=== PATIENT | male | born 1935 | race Caucasian/White ===

== ENCOUNTER 2020-09-24 06:55 | Day surgery (SDC) | payer MEDICARE, OTHER ==
[2020-09-18 17:44] LABS: BASOPHILS # (AUTO) 0.1 X10'3 (0-0.2); EOSINOPHILS # (AUTO) 0.3 X10'3 (0-0.9); EOSINOPHILS % (AUTO) 4.2 % (0-6); LYMPHOCYTES # (AUTO) 1.1 X10'3 (1.1-4.8); LYMPHOCYTES % (AUTO) 15.7 % (21-51); MEAN CORPUSCULAR HGB CONC 33.1 g/dL (33.0-36.5); MEAN CORPUSCULAR VOLUME 87.5 FL (78-98); MEAN PLATELET VOLUME 7.1 FL (7.4-10.4); MONOCYTES # (AUTO) 0.7 X10'3 (0-0.9); MONOCYTES % (AUTO) 9.9 % (2-12); NEUTROPHILS # (AUTO) 4.8 X10'3 (1.8-7.7); NEUTROPHILS % (AUTO) 69.2 % (42-75); PRE OP HEMATOCRIT 45.1 % (42.0-52.0); PRE OP HEMOGLOBIN 14.9 g/dL (14.0-17.9); PRE OP PLATELET COUNT 254 X10'3 (140-440); RED BLOOD COUNT 5.16 X10'6 (4.70-6.10); RED CELL DISTRIBUTION WIDTH 14.3 % (11.5-14.5)
[2020-09-18 17:51] LABS: PRE OP PROTIME 10.8 SECONDS (9.0-12.0)
[2020-09-18 17:56] LABS: ALBUMIN 3.9 G/DL (3.4-5.0); ALBUMIN/GLOBULIN RATIO 1.1 (1.1-1.5); ALKALINE PHOSPHATASE 68 IU/L (46-116); BLOOD UREA NITROGEN 15 MG/DL (7-18); BUN/CREATININE RATIO 18.1 (5.4-32.0); CALCIUM 8.9 MG/DL (8.5-10.1); CHLORIDE 105 MMOL/L (99-107); CREATININE 0.83 MG/DL (0.60-1.10); PRE OP ALT 36 U/L (30-65); PRE OP ANION GAP 8 (8-16); PRE OP AST 23 U/L (10-37); PRE OP BILIRUB, TOTAL 0.7 MG/DL (0.0-1.0); PRE OP GLUCOSE 99 MG/DL (70-104); PRE OP POTASSIUM 3.9 MMOL/L (3.4-5.1); PRE OP SODIUM 142 MMOL/L (135-145); TOTAL PROTEIN 7.3 G/DL (6.4-8.2); eGFR 88 ML/MIN
[2020-09-24] VITALS (19 sets, daily range): BP systolic 107–160; BP diastolic 51–102
[~2020-09-24] VITALS: Ht 167.6 cm; Wt 113.3 kg
[~2020-09-24 06:55] MED LIST: ATOR40TA72 PO; BENA40TA72 PO; HYDR25TA5 PO; HYDROmorphone 1 mg/ml syringe IV PRN; HYDROmorphone inj. 0.5 MG/0.5 ML DISP.SYRIN IV PRN; ROPIVAcaine 0.5% (5mg/ml) 30ml vial ONE; acetaminophen 325mg tablet PO ONE; acetaminophen 325mg tablet PO PRN; bisacodyl 10mg suppository rectal RC PRN; cefazolin/dext.iso 2gm/100ml IV ONE; celeCOXIB 100mg capsule PO ONE; cloNIDine hcl/PF 100mcg/ml inj ONE; diphenhydrAMINE 25mg capsule PO PRN; epiNEPHrine 1 mg/ml 30ml MDV ONE; epiNEPHrine 1 mg/ml inj ONE; famotidine 20mg tablet PO ONE; gabapentin 300mg capsule PO ONE; magnesium hydroxide 30ml (MOM) UD suspension PO PRN; metoclopramide 5 mg/ml inj IV ONE; ondansetron/PF 4mg/2ml inj IV PRN; oxyCODONE SR 10mg (sust. release) tab -2 tabs (20mg) PO ONE; oxyCODONE/APAP 10/325mg tablet PO PRN; tranexamic acid inj. 1,000 MG in normal saline 100 ML IV ONE; vancomycin 1,500 MG in NS 300ml IV soln IV ONE
[2020-09-24] MEDS: ringers solution, lacted 1,000 ML IV SCH ×2 (07:45→23:41)
[2020-09-24] MEDS: aspirin 325mg tablet PO SCH (08:30)
[2020-09-24] MEDS ORDERED: fentaNYL/PF 50MCG/1 ML 2ML syringe ONE (08:32)
[2020-09-24] MEDS ORDERED: midazolam 1 mg/ML 2ml injection ONE (08:32)
[2020-09-24] MEDS ORDERED: propofol inj 20 ML IV ONE ×2 (08:50)
[2020-09-24] MEDS ORDERED: ePHEDrine 50MG/ML INJ. ONE ×3 (09:16→09:34)
[2020-09-24] MEDS ORDERED: ketorolac trometh. 30mg/ml inj. ONE (09:26)
[2020-09-24] MEDS ORDERED: ROPIVAcaine 0.5% (5mg/ml) 30ml vial ONE (09:31)
[2020-09-24] MEDS ORDERED: dexamethasone sod phosphate 4mg/ml inj. ONE (09:31)
[2020-09-24] MEDS ORDERED: 0.9 % SODIUM CHLORIDE 10 ML VIAL ONE (09:34)
[2020-09-24] MEDS ORDERED: proCHLORperazine 10 MG/2 ml inj IV PRN (09:50)
[2020-09-24] MEDS ORDERED: hydrALAZINE 20mg/ml inj. IV PRN (09:50)
[2020-09-24] MEDS ORDERED: morphine 4 MG/ML inj SYRINge IV PRN (09:50)
[2020-09-24] MEDS ORDERED: ondansetron/PF 4mg/2ml inj IV PRN (09:50)
[2020-09-24] MEDS ORDERED: ringers solution, lacted 1,000 ML IV SCH (09:50)
[2020-09-24] MEDS ORDERED: morphine 2 MG/ML inj. syringe IV PRN (09:50)
[2020-09-24] MEDS ORDERED: labetalol 20mg/4ml (5mg/ml) syringe IV PRN (09:50)
[2020-09-24] MEDS ORDERED: acetaminophen 1,000mg/100ml IV 100 ML IV PRN (09:50)
[2020-09-24] MEDS ORDERED: meperidine/PF 25mg/ml syringe IV PRN ×3 (09:50)
--- NOTE | 2020-09-24 10:30 | NUR ---
Received from OR via hospital bed, accompanied by Anesthesiologist Dr. Rodriguez and report given by Anesthesiolgist. Patient has 18g to left forearm. Dressing/sleeve to right knee with Noe & Ana vac. VSS. Patient denies pain.
--- NOTE | 2020-09-24 12:00 | NUR ---
Patient report given to Shanel Ferreira RN. Patient A&Ox4. 18g forearm PIV to left. 2L NC to maintain oxygenation above 90%. VSS. Belongings sent with patient, wallet in safe (tags in chart). Patient denies pain. RIght foot still tingling, numb feeling with no movement.
[2020-09-24] MEDS ORDERED: tranexamic acid 1gm/0.7% sal. 100 ML IV ONE (14:44)
[2020-09-24] MEDS: multivitamins, therapeutics tablet PO SCH (15:46)
[2020-09-24] MEDS: ascorbic acid 500mg tablet PO SCH ×2 (15:47→19:55)
--- NOTE | 2020-09-24 18:30 | NUR ---
Patient in room [facility] 4023. I have received report from Stanislaw, and had the opportunity to ask questions and assume patient care.
[2020-09-24] MEDS: cefazolin/dext.iso 2gm/100ml 100 ML IV SCH ×2 (19:51→23:47)
[2020-09-24] MEDS: gabapentin 300mg capsule PO SCH (19:56)
[2020-09-24] MEDS ORDERED: sennosides 8.6mg tablet PO SCH (21:00)
--- NOTE | 2020-09-24 23:31 | NUR ---
no posop vitals taken since patient got on the floor around noon time.
[2020-09-24] MEDS: potassium cl 20mEq in 1/2 NS 1,000 ML IV SCH (23:46)
[2020-09-25 02:00] VITALS: BP 128/48
[2020-09-25 06:09] LABS: BASOPHILS % (AUTO) 0.3 % (0-1); EOSINOPHILS # (AUTO) 0.1 X10'3 (0-0.9); HEMATOCRIT 41.1 % (42.0-52.0); HEMOGLOBIN 13.4 g/dl (14.0-17.9); LYMPHOCYTES # (AUTO) 0.6 X10'3 (1.1-4.8); LYMPHOCYTES % (AUTO) 5.6 % (21-51); MEAN CORPUSCULAR HEMOGLOBIN 28.9 PG (27.0-31.0); MEAN CORPUSCULAR HGB CONC 32.7 g/dL (33.0-36.5); MEAN CORPUSCULAR VOLUME 88.4 FL (78-98); MEAN PLATELET VOLUME 7.3 FL (7.4-10.4); MONOCYTES # (AUTO) 1.2 X10'3 (0-0.9); MONOCYTES % (AUTO) 11.1 % (2-12); NEUTROPHILS # (AUTO) 8.6 X10'3 (1.8-7.7); PLATELET COUNT 221 X10'3 (140-440); RED BLOOD COUNT 4.65 X10'6 (4.70-6.10); RED CELL DISTRIBUTION WIDTH 14.3 % (11.5-14.5); WHITE BLOOD COUNT 10.5 X10'3 (4.5-11.0)
--- NOTE | 2020-09-25 06:09 | NUR ---
Patient in room [facility]TH[facility] 4023. I have received report from Filemon BRADY and had the opportunity to ask questions and assume patient care.
[2020-09-25 06:10] VITALS: BP 129/82
--- NOTE | 2020-09-25 06:16 | NUR ---
Problems reprioritized. Patient report given, questions answered & plan of care reviewed with Loree-JOSE ANTONIO.
[2020-09-25 06:21] LABS: ANION GAP 8 (8-16); CHLORIDE 106 MMOL/L (99-107); POTASSIUM 4.5 MMOL/L (3.5-5.1); SODIUM 142 MMOL/L (135-145); TOTAL CARBON DIOXIDE 28.3 MMOL/L (24-32)
[2020-09-25] MEDS: potassium cl 20mEq in 1/2 NS 1,000 ML IV SCH (06:31)
[2020-09-25] MEDS: gabapentin 300mg capsule PO SCH (07:07)
[2020-09-25] MEDS: multivitamins, therapeutics tablet PO SCH (07:07)
[2020-09-25] MEDS: ascorbic acid 500mg tablet PO SCH (07:07)
[2020-09-25] MEDS ORDERED: atorvastatin 20mg tablet PO SCH (08:00)
[2020-09-25] MEDS ORDERED: lisinopril 20mg tablet PO SCH (08:00)
[2020-09-25] MEDS ORDERED: HYDROchlorothiazide 25mg tablet PO SCH (08:00)
[2020-09-25] MEDS: aspirin 325mg tablet PO SCH (08:49)
[2020-09-25 10:38] VITALS: BP 140/66
--- NOTE | 2020-09-25 12:00 | NUR ---
Went over discharge instructions with patient including follow up, incision care, s/s of infection and or blood clots. Patient verbalized understanding. Went over in extensive detail when he needs to take his medications next. Also went over UMAIR dressing and how to care for it. Patient verbalized understanding. Discharged via wheelchair to private vehicle with no complications.
--- NOTE | 2020-09-25 12:42 | NUR ---
Joint Surgery Consult: Pt s/p R knee surgery this admit. Pt seen by RD for written/verbal high protein ed w/ RD contact information provided. Pt reports has ensures at home and will have sons buy more for him following discharge. Pt reports eats mainly breakfast w/ small dinner and no lunch at home since not a great cook. RD encouraged ONS intake and protein/kcal supplementation for wound healing post-op and encouraged pt to contact dietitian's office if further questions/concerns. Addendum: 09/25/20 at [address] Amended: Links added.
[2020-09-25] MEDS ORDERED: celeCOXIB 100mg capsule PO SCH (20:00)
== END 2020-09-25 13:15 | disposition home or self-care (01) ==
LOC: PAS 06:55 → ORTHO 4S 14:37 → PAS 09-25 13:15
PROVIDERS: ATTEND Orthopaedic Surgery
DX: M17.11 Unilateral primary osteoarthritis, right knee (principal); I10 Essential (primary) hypertension; G89.18 Other acute postprocedural pain; Z79.01 Long term (current) use of anticoagulants; Z79.899 Other long term (current) drug therapy; Z87.891 Personal history of nicotine dependence; Z98.890 Other specified postprocedural states; Z72.89 Other problems related to lifestyle; Z82.49 Family history of ischemic heart disease and other diseases of the circulatory system
CPT/HCPCS: 27446; 36415; 64447; 73560; 76942; 80051; 80053; 82948; 85025; 85610; 85730; 86885; 86900; 86901; 87081; 97110; 97116; 97162; 97530; A6454; C1713; C1776; J0171; J0735; J1100; J1885; J2250; J2704; J2765; J3010; J3370; J7040; J7120; A4215; A7000; G0378; J2795; J3480

== ENCOUNTER 2023-12-09 08:38 | Outpatient (CLI) | payer MEDICARE, OTHER ==
[~2023-12-09 08:38] MED LIST changes: -HYDROmorphone 1 mg/ml syringe IV PRN; -HYDROmorphone inj. 0.5 MG/0.5 ML DISP.SYRIN IV PRN; -ROPIVAcaine 0.5% (5mg/ml) 30ml vial ONE; -acetaminophen 325mg tablet PO ONE; -acetaminophen 325mg tablet PO PRN; -bisacodyl 10mg suppository rectal RC PRN; -cefazolin/dext.iso 2gm/100ml IV ONE; -celeCOXIB 100mg capsule PO ONE; -cloNIDine hcl/PF 100mcg/ml inj ONE; -diphenhydrAMINE 25mg capsule PO PRN; -epiNEPHrine 1 mg/ml 30ml MDV ONE; -epiNEPHrine 1 mg/ml inj ONE; -famotidine 20mg tablet PO ONE; -gabapentin 300mg capsule PO ONE; -magnesium hydroxide 30ml (MOM) UD suspension PO PRN; -metoclopramide 5 mg/ml inj IV ONE; -ondansetron/PF 4mg/2ml inj IV PRN; -oxyCODONE SR 10mg (sust. release) tab -2 tabs (20mg) PO ONE; -oxyCODONE/APAP 10/325mg tablet PO PRN; -tranexamic acid inj. 1,000 MG in normal saline 100 ML IV ONE; -vancomycin 1,500 MG in NS 300ml IV soln IV ONE
== END 2023-12-09 23:59 | disposition home or self-care (01) ==
LOC: RAD 08:38
PROVIDERS: ATTEND Physician Assistant
DX: S82.101A Unspecified fracture of upper end of right tibia, initial encounter for closed fracture (principal); M17.12 Unilateral primary osteoarthritis, left knee; M25.862 Other specified joint disorders, left knee; Z96.652 Presence of left artificial knee joint; X58.XXXA Exposure to other specified factors, initial encounter; Y93.89 Activity, other specified; Y92.89 Other specified places as the place of occurrence of the external cause; Y99.8 Other external cause status
CPT/HCPCS: 73700